=== PATIENT | female | born 1955 | race Caucasian/White ===

== ENCOUNTER → 2020-06-19 09:39 | Outpatient (CLI) | payer MEDICARE, SELFPAY ==
--- NOTE | 2020-06-19 09:57 | BD_ITS ---
STUDY: DUAL ENERGY X-RAY ABSORPTIOMETRY / DXA REASON FOR EXAM: Female, 64 years old. BEEF CATTLE GRAZIER -- HX OF HRT -- TAKES CALCIUM AND MULTIVITAMIN -- DOES MODERATE AMOUNT OF EXERCISE -- NO EDUARDO TECHNIQUE: Bone Mineral Density (BMD) measurements of lumbar spine and bilateral hips were obtained. COMPARISON: None. FINDINGS: Lumbar Spine (L1-L4): g/cm2 (0.952) / T-score (-1.9) / Z-score (-0.3) Findings are suggestive of osteopenia with a moderate fracture risk. Left Femur Total: g/cm2 (0.918) / T-score (-0.7) / Z-score (0.5) Left Femoral Neck: g/cm2 (0.930) / T-score (-0.8) / Z-score (0.7) Right Femur Total: g/cm2 (0.892) / T-score (-0.9) / Z-score (0.3) Right Femoral Neck: g/cm2 (0.900) / T-score (-1.0) / Z-score (0.5) BD/Dexa Bone Density Study IMPRESSION: The patient is considered osteopenic as outlined below according to World Ramu Organization (WHO) criteria with a moderate fracture risk. Reference Information: The T-score is the number of standard deviations above or below the standard which is normal for young adults at their peak bone mineral density. The World Health Organization (WHO) interprets the T-scores as follows: Above -1 Normal bone density Between -1 and -2.5 Osteopenia Equal to / or below -2.5 Osteoporosis As a practical clinical guideline, osteopenia may be graded as follows: Mild -1 through -1.5 Moderate -1.6 through -2.0 Severe -2.1 through -2.4 The Z-score is the number of standard deviations above or below age-matched controls. A Z-score of less than -1.5 would be considered abnormal. References: 1. NIH Osteoporosis and Related Bone Diseases www osteo.org 2. International Society for Clinical Densitometry www iscd.org 3. National Osteoporosis Foundation www nof.org Electronically Signed: Arpit Resendiz, at 13:22 EST , Service support ,
--- NOTE | 2020-06-19 10:16 | ECHOD_ITS ---
Version 2 Reason For Study: FAM HX CMP Procedure This was a 2D Doppler, Color Flow transthoracic echocardiogram. Exam performed in department. Left Ventricle Normal left ventricle. Left ventricular systolic function is normal. The estimated ejection fraction is 60 %. No regional wall motion abnormalities noted. Right Ventricle Normal RV size. Normal systolic function. Atria Normal left atrium. Normal right atrium. Mitral Valve Bileaflet diffuse mitral valve thickening. Trivial mitral valve insufficiency. Tricuspid Valve Normal tricuspid valve. Mild tricuspid valve insufficiency. Pulmonary artery systolic pressure is 34 mmHg. Aortic Valve Normal aortic valve. Pulmonic Valve Normal pulmonic valve. Great Vessels Normal aortic root. The pulmonary artery is normal size. Normal inferior vena cava. Pericardium/Pleural No pericardial effusion. MMode/2D Measurements & Calculations LVIDd: 3.7 cm IVSd: 0.65 cm Ao root diam: 3.1 cm LVIDs: 2.5 cm LVPWd: 0.72 cm RVDd: 3.4 cm FS: 31.7 % LAV(MOD-bp): 45.2 ml LA A4 area: 14.2 cm2 LA dimension(2D): 2.7 cm LAV(MOD-bp) Indexed: 25.9 ml/m2 LAV(MOD-sp2): 45.6 ml LAV(MOD-sp4): 38.1 ml RA A4 area: 11.1 cm2 Time Measurements MV dec time: 0.22 sec Doppler Measurements & Calculations MV E max darrel: 72.2 cm/sec Lat Peak E' Darrel: 6.5 cm/sec Med Peak E' Darrel: 4.0 cm/sec MV A max darrel: 52.8 cm/sec E/E' lat: 11.1 E/E' med: 18.0 MV E/A: 1.4 Ao V2 max: 111.7 cm/sec LV V1 max: 85.0 cm/sec PA V2 max: 73.0 cm/sec Ao max P.0 mmHg LV V1 max P.9 mmHg TR max darrel: 273.7 cm/sec TR max P.0 mmHg Interpretation Summary Normal left ventricle. Left ventricular systolic function is normal. The estimated ejection fraction is 60 %. Bileaflet diffuse mitral valve thickening. Trivial mitral valve insufficiency. Mild tricuspid valve insufficiency. Ordering Physician: Elvira Cook Referring Physician: Elvira Cook Performed By: Iris Betancur, KELLEN, RVT
== END ==
PROVIDERS: PCP Internal Medicine; Referring Provider Internal Medicine; Visit Provider Internal Medicine
DX: I34.0 Nonrheumatic mitral (valve) insufficiency (principal); Z78.0 Asymptomatic menopausal state; Z82.49 Family history of ischemic heart disease and other diseases of the circulatory system
CPT/HCPCS: 77080; 93306

== ENCOUNTER → 2022-01-22 | Outpatient (CLI) | payer SELFPAY ==
--- NOTE | 2022-01-22 12:48 | CT_ITS ---
INDICATION: ABN FINDINGS EXAMINATION: CT CHEST WITHOUT CONTRAST - CT Chest W/O Contrast Injection TECHNIQUE: Helically acquired images were obtained of the chest. A radiation dose optimization technique was used for this scan. IV Contrast dosage and agent: None. COMPARISON: None. FINDINGS: The examination is limited due to images through the heart done during performance of coronary artery calcium scoring. LUNGS, PLEURA AND LARGE AIRWAYS: No masses, consolidation, or edema. No pleural effusion or thickening. No pneumothorax. THYROID: No thyroid lesions. HEART AND PERICARDIUM: Heart size is normal. No pericardial effusion. CORONARY ARTERIES: Coronary artery calcification is seen. VESSELS: Thoracic aorta is not dilated. MEDIASTINUM AND SYLVIA: No mediastinal or hilar adenopathy. Esophagus is unremarkable. No hiatal hernia. UPPER ABDOMEN: No acute pathology. BONES: No suspicious lytic or blastic abnormality. CT/Limited Chest CT Cardiac Only IMPRESSION: Negative limited CT chest without contrast. Electronically Signed: Marvin Maynard MD at 11:09 EDT ,
[2022-01-22 12:55] VITALS: BP 147/50; PULSE 57; RESP 16; O2SAT 100; BMI 23.7
--- NOTE | 2022-01-22 18:33 | CA.SCORE ---
Calcium Scoring Date of Study:: 01/22/22 Coronary Calcium Scoring: High-resolution Computed Tomographic imaging of the chest was performed on [01/22/22 ], with particular attention paid to the coronary arteries. Images from the examination were analyzed for the presence and extent of coronary artery calcification , using coronary calcium quantification software. The patient tolerated the procedure well and there were no complications. The results of the coronary calcification analysis are provided below. Findings Coronary Artery Left Main (LM): 0 Left Anterior Descending (LAD): 15.9 Left Circumflex (LCX): 0 Right Coronary Artery (RCA): 0 Total Agatston Score: 15.9 Calcium Scoring Interpretation: 0 No identifiable atherosclerotic plaque. Very low cardiovascular disease risk. <5% chance of presence coronary artery disease A Negative Examination 1-10 Minimal Plaque burden. Significant coronary artery disease very unlikely. 11-100 Mild plaque burden. Likely mild or minimal coronary atherosclerosis. 101-400 Moderate plaque burden Moderate non-obstructive coronary artery disease highly likely. Over 400 Extensive plaque burden. High likelihood of at least one significant coronary stenosis (>50% diameter)
== END | disposition home or self-care (01) ==
PROVIDERS: PCP Internal Medicine; Referring Provider Internal Medicine; Visit Provider Internal Medicine
DX: Z00.01 Encounter for general adult medical examination with abnormal findings (principal)
CPT/HCPCS: 75571; 76380

== ENCOUNTER 2022-06-24 11:08 | Outpatient (CLI) | payer MEDICARE, SELFPAY ==
--- NOTE | 2022-06-24 11:20 | BD_ITS ---
STUDY: DUAL ENERGY X-RAY ABSORPTIOMETRY / DXA REASON FOR EXAM: Female, 66 years old. [id number] TECHNIQUE: Bone Mineral Density (BMD) measurements of lumbar spine and bilateral hips were obtained. COMPARISON: Comparison is made with prior examination dated 06/19/2020. FINDINGS: Lumbar Spine (L1-L4): g/cm2 (0.770) / T-score (-2.6) / Z-score (-0.6) Findings are suggestive of osteoporosis with a high fracture risk. Left Femur Total: g/cm2 (0.882) / T-score (-0.5) / Z-score (0.9) Left Femoral Neck: g/cm2 (0.740) / T-score (-1.0) / Z-score (0.7) Right Femur Total: g/cm2 (0.858) / T-score (-0.7) / Z-score (0.7) Right Femoral Neck: g/cm2 (0.702) / T-score (-1.3) / Z-score (0.3) The T-Scores on the most recent prior examination were: Lumbar Spine (L1-L4): There has been worsening of bone density since the previous examination. Left Femur Total: which represents an improvement of 3.2%. Right Femur Total: which represents an improvement of 3.4%. BD/Dexa Bone Density Study IMPRESSION: The patient is considered osteoporotic as outlined below according to World Ramu Organization (WHO) criteria with a high fracture risk. There has been improvement of bone density since the previous examination. Reference Information: The T-score is the number of standard deviations above or below the standard which is normal for young adults at their peak bone mineral density. The World Health Organization (WHO) interprets the T-scores as follows: Above -1 Normal bone density Between -1 and -2.5 Osteopenia Equal to / or below -2.5 Osteoporosis As a practical clinical guideline, osteopenia may be graded as follows: Mild -1 through -1.5 Moderate -1.6 through -2.0 Severe -2.1 through -2.4 The Z-score is the number of standard deviations above or below age-matched controls. A Z-score of less than -1.5 would be considered abnormal. References: 1. NIH Osteoporosis and Related Bone Diseases www osteo.org 2. International Society for Clinical Densitometry www iscd.org 3. National Osteoporosis Foundation www nof.org Electronically Signed: Arpit Resendiz MD at 11:08 EST ,
== END 2022-06-24 23:59 | disposition home or self-care (01) ==
LOC: OPBD 11:09
PROVIDERS: PCP Internal Medicine; Visit Provider Internal Medicine
DX: Z78.0 Asymptomatic menopausal state (principal)
CPT/HCPCS: 77080

== ENCOUNTER 2023-03-15 22:23 | Emergency (ER) | payer MEDICARE, SELFPAY ==
[2023-03-15 22:24] VITALS: BP 156/69; PULSE 91; RESP 16; TEMP 36.3; O2SAT 100; BMI 24.0
--- NOTE | 2023-03-15 23:16 | CT_ITS ---
EXAM: CT ABDOMEN AND PELVIS WITHOUT INTRAVENOUS CONTRAST CLINICAL INDICATION: left flank pain TECHNIQUE: Helically acquired images were obtained of the abdomen and pelvis without intravenous contrast. This CT exam was performed using one or more of the following dose reduction techniques: automated exposure control, adjustment of the mA and/or kV according to patient size, and/or use of iterative reconstruction technique. RADIATION DOSE: CTDIvol = 9.49 mGy, DLP = 426.54 mGy-cm COMPARISON: January 22, 2022 enhanced exam. FINDINGS: LOWER THORAX: Minimal linear atelectasis or scarring in the right lung base. Slight hiatal hernia. No cardiomegaly. No significant pericardial effusion. ABDOMEN: LIVER: Unremarkable. Homogeneous. GALLBLADDER AND BILE DUCTS: Unremarkable. No calcified gallstones. No gallbladder distention or wall edema. No intra- or extrahepatic biliary ductal dilation. PANCREAS: Unremarkable. No focal cystic mass. SPLEEN: Unremarkable. Normal size without focal cystic or solid mass. ADRENALS: Unremarkable. No nodules. KIDNEYS AND URETERS: There is left hydroureteronephrosis to the level of a 6 mm x 5 mm x 5 mm stone in the left UVJ. Left renal pelvis 2 cm AP, mid left ureter roughly 8 mm. No additional stones in the kidneys. A smaller stone was noted in the left kidney in 2017. Mild left perinephric soft tissue stranding. Normal renal size and position. STOMACH AND BOWEL: Mild diverticulosis of sigmoid colon. Mild gas and stool in the right colon. No stomach or bowel distention. No focal inflammatory change. PELVIS: APPENDIX: Small appendix is thought to be seen on coronal images. BLADDER: Unremarkable. REPRODUCTIVE: Unremarkable as visualized. No mass. ABDOMEN and PELVIS: INTRAPERITONEAL SPACE: Unremarkable. No ascites or other fluid collection. No free air. BONES/JOINTS: Unremarkable. No suspicious lytic or blastic abnormality. SOFT TISSUES: Partially included peripherally calcified breast implants. No discrete abdominal or pelvic wall hernia. VASCULATURE: Unremarkable. Abdominal aorta is non-dilated. LYMPH NODES: Unremarkable. No enlarged lymph nodes. CT/Abdomen/Pelvis without Cont IMPRESSION: 1. Mild left hydroureteronephrosis to the level of a 6 mm x 5 mm stone in the left UVJ. 2. No additional acute findings. Sigmoid diverticulosis. Electronically Signed: Jelena Hawkins MD at 1:02 EDT Reading Location ID and State: [facility] / [place] Tel , Service support ,
[2023-03-15] MEDS: 0.9% Normal Saline 1,000 ML 999 ML IV (23:34)
[2023-03-15] MEDS: Ketorolac 15 MG/ML Vial IV (23:34)
[2023-03-15 23:44] LABS: Mucous, Urine 0 SEEN /hpf (<or=2+); Squamous Epithelial Cells - UA 0 SEEN /hpf (5-10)
[2023-03-15 23:45] LABS: Color, Urine Yellow (Yellow); Glucose, Dipstick Normal (Normal); Ketone-Dipstick 50 mg/dl (Negative); Leukocyte Esterase-Dipstick 25 /ul (Negative); Nitrite-Dipstick Negative (Negative); Occult Blood-Urine 250 /ul (Negative); Protein-Dipstick 30 mg/dl (Negative); Urine Bilirubin Dipstick Negative (Negative); Urine Clarity Sl. Cloudy (Clear); Urine Urobilinogen Normal (Normal)
[2023-03-15 23:46] LABS: Absolute Lymphocyte Count 1.53 X10^3/uL (0.83-4.51); Basophil# 0.06 X10^3/uL; Basophil% 0.5 % (0-1); Eosinophil# 0.06 X10^3/uL; Eosinophils% 0.5 % (0-5); Hematocrit 36.1 % (37-47); Hemoglobin 11.7 g/dL (12.0-15.0); Lymphocyte # 1.53 X10^3/ul (0.83-4.51); Lymphocyte % 13.3 % (19-41); Mean Corp Hgb Conc 32.4 g/dL (32-36); Mean Corpuscular Hgb 30.6 pg (27.0-32.0); Mean Corpuscular Volume 94.5 fL (81-99); Mean Platelet Vol. 10.8 fl (6.2-12.0); Monocyte# 0.85 X10^3/uL; Monocyte% 7.4 % (0-10); NRBC Flagged by Analyzer 0 % (0-5); Neutrophil # 8.98 X10^3/uL (2.7-7.7); Platelet Count 224 K/mm3 (150-450); RBC Distribution Width CV 12.8 % (11.6-14.6); RBC Distribution Width SD 44.6 fl (35.1-43.9); Red Blood Count 3.82 M/mm3 (4.2-5.4); White Blood Count 11.5 K/mm3 (4.4-11.0)
[2023-03-15 23:56] LABS: Bacteria 1+ /hpf (None Seen); Red Blood Cells-Urine > 100 SEEN /hpf (0-5); White Blood Cells 0-5 SEEN /hpf (0-5)
[2023-03-16 00:22] LABS: Anion Gap 8 (5-15); BUN 25 mg/dL (7-18); BUN/Creat Ratio 21.9 RATIO (10-20); Calcium,Total 9.7 mg/dL (8.5-10.1); Chloride 102 mmol/L (98-107); Creatinine, Serum 1.14 mg/dL (0.55-1.02); EST Glomerular Filtration Rate 50 mL/min (>60); Est Glom Filt Rate - Afr Amer 61 mL/min (>60); Estimated Creatinine Clearance 44.21 ml/min; Glucose 140 mg/dL (74-106); Sodium Level 140 mmol/L (136-145)
[2023-03-16 00:24] VITALS: RESP 18
--- NOTE | 2023-03-16 01:24 | EDS_ITS ---
HPI History of Present Illness Chief Complaint: Abd Pain Informant: patient Narrative Narrative: Patient is a 67-year-old female with past medical history of hyperlipidemia. She states that over the past 1 to 2 days she has been having intermittent sharp left-sided flank/abdominal pain. She states the pain got so bad this evening she had bouts of nausea and vomiting. She also admits to hematuria. Secondary to the worsening symptoms she presents for evaluation [facility] Medical History Hyperlipidemia Non-smoker Home Medications ciprofloxacin HCl 500 mg tablet (Cipro) 500 mg PO BID 7 days #14 tabs 03/16/23 [Rx Last Taken Unknown] hydrochlorothiazide 25 mg tablet 25 mg PO DAILY 03/16/23 [History Last Taken Unknown] ketorolac 10 mg tablet 10 mg PO Q6H 5 days #20 tabs 03/16/23 [Rx Last Taken Unknown] ondansetron 4 mg disintegrating tablet 4 mg PO TID PRN nausea and vomiting #21 tabs 03/16/23 [Rx Last Taken Unknown] oxycodone-acetaminophen 5 mg-325 mg tablet (Percocet) 1 tab PO Q6H PRN pain 3 days #12 tabs 03/16/23 [Rx Last Taken Unknown] rosuvastatin 10 mg tablet 10 mg PO QHS 03/16/23 [History Last Taken Unknown] tamsulosin 0.4 mg capsule (Flomax) 0.4 mg PO DAILY 14 days #14 caps 03/16/23 [Rx Last Taken Unknown] Allergy/AdvReac Type Severity Reaction Status Date / Time metronidazole [From Flagyl] Allergy Rash Verified 03/15/23 22:24 Penicillins Allergy Rash Verified 03/15/23 22:24 Sulfa (Sulfonamide Allergy Rash Verified 03/15/23 22:24 Antibiotics) Social History Smoking Status: Never smoker ROS ROS ED Constitutional Constitutional ED: Denies chills or fever(s) ENT ENT ED: Denies sore throat Cardiovascular Cardiovascular: Denies chest pain Respiratory/Chest Respiratory/Chest: Denies cough or dyspnea Gastrointestinal Gastrointestinal: Reports abdominal pain, nausea and vomiting; Denies diarrhea Genitourinary Genitourinary ED: Reports hematuria and other Details: Positive left flank pain ; Denies dysuria Musculoskeletal Musculoskeletal: Reports back pain; Denies myalgias Integumentary Denies rash Neurologic Neurologic: Denies headache(s) Hematologic/Lymphatic Hematologic/Lymphatic: Denies easy bleeding or easy bruising EXAM Physical Exam Const Vital Signs: 03/15/23 22:24 03/16/23 00:24 Temperature 97.4 F L Temperature Source Temporal Pulse Rate 91 Respiratory Rate 16 18 Blood Pressure 156/69 H Blood Pressure Mean 98 Pulse Ox 100 Oxygen Delivery Method Room Air Positive well nourished and well developed General Appearance ED: well developed HEENT HEENT Narrative: Normocephalic atraumatic Eyes PERRL and EOMs intact bilaterally Neck supple Resp normal respiratory effort and clear to auscultation bilaterally Cardio regular rate and regular rhythm Rate: other Other Details: Radial and carotid pulses are equal and symmetric GI non-distended GI Narrative: Abdomen is soft and nondistended with normal active bowel sounds. There is pain with palpation in the left lower quadrant without voluntary guarding or rigidity. No pulsatile mass or fluid wave noted Auscultation: normoactive bowel sounds Palpation: soft Back/Spine Back/Spine Narrative: Positive left CVA pain Extremity normal to inspection Neuro oriented x3 and CN's II-XII intact bilaterally Sensorium / Orientation: alert Motor Exam: strength 5/5 throughout Psych mental status grossly normal Skin no rashes or lesions noted Skin Narrative: No overlying soft tissue changes to suggest trauma or infection MDM MDM MDM Narrative Medical decision making narrative: Patient presented to the ER afebrile with report of intermittent sharp left- sided flank pain wrapping towards the groin. Differential diagnosis is for kidney stone versus diverticulitis versus pyelonephritis versus UTI versus lumbosacral strain. Patient's blood work shows no signs of acute kidney injury or urosepsis. CT scan does not show inflammatory changes around the kidney to suggest pyelonephritis. It does note she has a 6 mm stone in distal left ureter near the UVJ with mild hydronephrosis consistent with her exam. At this time as she does not have signs of urosepsis or acute kidney injury and her pain is improved with Toradol there is no need for admission or further work-up and she can be discharged home with outpatient urology follow-up History & Record Review Discussion w/independent historian: Patient Lab Data Attestation: I reviewed the patient's lab results. Labs: Laboratory Results - last 24 hr 03/15/23 03/15/23 23:32 23:40 WBC 11.5 H RBC 3.82 L Hgb 11.7 L Hct 36.1 L MCV 94.5 MCH 30.6 MCHC 32.4 RDW Std Deviation 44.6 H RDW Coeff of Rosangela 12.8 Plt Count 224 MPV 10.8 Immature Gran % (Auto) 0.300 Neut % (Auto) 78.0 H Lymph % (Auto) 13.3 L [place] % (Auto) 7.4 Eos % (Auto) 0.5 Baso % (Auto) 0.5 Absolute Neuts (auto) 9.0 H Absolute Lymphs (auto) 1.53 Nucleated RBC % 0 Sodium 140 Potassium 3.0 L Chloride 102 Carbon Dioxide 30.0 Anion Gap 8 BUN 25 H Creatinine 1.14 H Estim Creat Clear Calc 44.21 Est GFR (MDRD) Af Amer 61 Est GFR (MDRD) Non-Af 50 L BUN/Creatinine Ratio 21.9 H Glucose 140 H Calcium 9.7 Urine Color Yellow Urine Clarity Sl. Cloudy Urine pH 7.0 Ur Specific [place] 1.010 Urine Protein 30 H Urine Glucose (UA) Normal Urine Ketones 50 H Urine Occult Blood 250 H Urine Nitrite Negative Urine Bilirubin Negative Urine Urobilinogen Normal Ur Leukocyte Esterase 25 H Urine RBC > 100 SEEN Urine WBC 0-5 SEEN Ur Squamous Epith Cells 0 SEEN Urine Bacteria 1+ Urine Mucus 0 SEEN Radiography Diagnostic Testing: Clinical Impression(s) from Imaging Studies Abdomen/Pelvis CT 03/15/23 23:16 IMPRESSION: 1. Mild left hydroureteronephrosis to the level of a 6 mm x 5 mm stone in the left UVJ. 2. No additional acute findings. Sigmoid diverticulosis. Electronically Signed: Jelena Hawkins MD at 1:02 EDT , Discharge Plan Triage Chief Complaint: Abd Pain ED Provider: Salty Pritchard Dx/Rx/DC Orders Clinical Impression: Renal colic, Kidney stone, Hyperlipidemia Instructions: ED Kidney Stone w/ Colic Prescriptions: New ciprofloxacin HCl [Cipro] 500 mg tablet 500 mg PO BID 7 Days Qty: 14 0RF tamsulosin [Flomax] 0.4 mg capsule 0.4 mg PO DAILY 14 Days Qty: 14 0RF ketorolac 10 mg tablet 10 mg PO Q6H 5 Days Qty: 20 0RF oxycodone-acetaminophen [Percocet] 5-325 mg tablet 1 tab PO Q6H PRN (Reason: pain) 3 Days Qty: 12 0RF ondansetron 4 mg tablet,disintegrating 4 mg PO TID PRN (Reason: nausea and vomiting) Qty: 21 0RF No Action rosuvastatin 10 mg tablet 10 mg PO QHS Patient Comments: take 1 tablet by mouth at bedtime hydrochlorothiazide 25 mg tablet 25 mg PO DAILY Patient Comments: take 1 tablet by mouth every morning Primary Care Provider: Elvira Cook Referrals: Ron Israel MD [Med Staff - Active Staff] - Elvira Cook DO [Primary Care Provider] - Activity Restrictions/Additional Instructions: Your CT scan shows you have a 6 mm kidney stone near your left ureterovesicular junction. Keep yourself well-hydrated and stay active to try and help pass the stone. If you develop a fever over 100.4 or you have intractable pain despite taking your medication please return for repeat evaluation. Otherwise follow-up with urology to discuss need for possible stent placement. Disposition Disposition: Home, Self Care Discharge Date/Time: 03/16/23 01:57
== END 2023-03-16 01:57 | disposition home or self-care (01) ==
PROVIDERS: Emergency Provider Emergency Medicine; PCP Internal Medicine; Visit Provider Emergency Medicine
DX: N13.2 Hydronephrosis with renal and ureteral calculous obstruction (principal); E78.5 Hyperlipidemia, unspecified; N23 Unspecified renal colic
CPT/HCPCS: 74176; 80048; 81001; 85025; 96361; 96374; 99282; J7030; A4216

== ENCOUNTER → 2024-06-27 | Outpatient (CLI) | payer MEDICARE, SELFPAY ==
--- NOTE | 2024-06-27 10:22 | BD_ITS ---
STUDY: DUAL ENERGY X-RAY ABSORPTIOMETRY / DXA REASON FOR EXAM: Female, 68 years old. 733.00OsteoporosisBONE DENSITY REASON FOR EXAM TECHNIQUE: Bone Mineral Density (BMD) measurements of lumbar spine and bilateral hips were obtained. COMPARISON: Comparison is made with prior study dated June 24, 2022. FINDINGS: Lumbar Spine (L1-L4): g/cm2 (0.776) / T-score (-2.5) / Z-score (-0.4) Findings are suggestive of osteopenia with a high fracture risk. Left Femur Total: g/cm2 (0.830) / T-score (-0.9) / Z-score (0.6) Left Femoral Neck: g/cm2 (0.714) / T-score (-1.2) / Z-score (0.6) Right Femur Total: g/cm2 (0.844) / T-score (-0.8) / Z-score (0.7) Right Femoral Neck: g/cm2 (0.698) / T-score (-1.4) / Z-score (0.4) The T-Scores on the most recent prior examination were: Lumbar Spine (L1-L4): There has been improvement of bone density since the previous examination. Left Femur Total: which represents a worsening of 5.8%. Right Femur Total: which represents a worsening of 1.6%. BD/Dexa Bone Density Study IMPRESSION: The patient is considered osteopenic as outlined below according to World Ramu Organization (WHO) criteria with a high fracture risk. There has been worsening of bone density since the previous examination. Reference Information: The T-score is the number of standard deviations above or below the standard which is normal for young adults at their peak bone mineral density. The World Health Organization (WHO) interprets the T-scores as follows: Above -1 Normal bone density Between -1 and -2.5 Osteopenia Equal to / or below -2.5 Osteoporosis As a practical clinical guideline, osteopenia may be graded as follows: Mild -1 through -1.5 Moderate -1.6 through -2.0 Severe -2.1 through -2.4 The Z-score is the number of standard deviations above or below age-matched controls. A Z-score of less than -1.5 would be considered abnormal. References: 1. NIH Osteoporosis and Related Bone Diseases www osteo.org 2. International Society for Clinical Densitometry www iscd.org 3. National Osteoporosis Foundation www nof.org Electronically Signed: Arpit Resendiz MD at 9:05 EST ,
== END | disposition home or self-care (01) ==
PROVIDERS: PCP Internal Medicine; Referring Provider Internal Medicine; Visit Provider Internal Medicine
DX: M81.0 Age-related osteoporosis without current pathological fracture (principal)
CPT/HCPCS: 77080

== ENCOUNTER 2025-03-26 10:50 | Outpatient (RCR) | payer MEDICARE, SELFPAY | END 2025-03-26 19:00 | disposition home or self-care (01) | LOC: PT 10:50 | PROVIDERS: PCP Internal Medicine; Visit Provider Internal Medicine | DX: M65.949 Unspecified synovitis and tenosynovitis, unspecified hand (principal) ==